=== PATIENT | female | born 1945 | race Caucasian/White ===

== ENCOUNTER 2020-07-29 12:43 | Outpatient (CLI) | payer MEDICARE | END 2020-07-29 12:44 | disposition home or self-care (01) | LOC: BICRAD 12:43 | PROVIDERS: ATTEND Specialist | DX: M25.561 Pain in right knee (principal) ==

== ENCOUNTER 2025-02-26 14:01 | Outpatient (CLI) | payer MEDICARE | END 2025-02-26 14:02 | disposition home or self-care (01) | LOC: BICRAD 14:01 | PROVIDERS: ATTEND Podiatrist | DX: M72.2 Plantar fascial fibromatosis (principal); L90.9 Atrophic disorder of skin, unspecified ==